=== PATIENT | female | born 1955 | race Caucasian/White ===

== ENCOUNTER → 2017-11-26 | Outpatient (REF) | payer BC ==
[2017-11-26 17:50] LABS: IMMUNOGLOBULIN G 1070 MG/DL (681-1648); IMMUNOGLOBULIN M 88.2 MG/DL (40-230)
[2017-11-28 08:06] LABS: ALPHA 1 ANTITRYPSIN 137 mg/dL (90-200)
== END ==
LOC: M LAB REF 16:52
DX: J47.9 Bronchiectasis, uncomplicated (principal)
CPT/HCPCS: 82103

== ENCOUNTER → 2017-12-11 | Outpatient (CLI) | payer BC ==
[~2017-12-11] MED LIST: METHACHOLINE KIT (J7674) INH
== END ==
LOC: M CARPUL 12:17
DX: J47.9 Bronchiectasis, uncomplicated (principal)

== ENCOUNTER → 2018-02-14 | Outpatient (CLI) | payer BC | LOC: M RAD 10:04 | DX: J47.9 Bronchiectasis, uncomplicated (principal) ==

== ENCOUNTER 2018-02-28 07:01 | Day surgery (SDC) | payer BC ==
[2018-02-28] MEDS: D5W 1,000 ML IV (06:00)
[2018-02-28] MEDS ORDERED: EPINEPHrine 1MG/10ML SYRINGE 1.5IN As Ordered (07:08)
[2018-02-28] MEDS ORDERED: LIDOCAINE 4% INJ 5 ML AMP As Ordered (07:08)
[2018-02-28] MEDS ORDERED: LIDOCAINE 1% MDV 20ML VIAL As Ordered (07:08)
[2018-02-28] MEDS ORDERED: MIDAZOLAM INJ 2 MG/2 ML VIAL (J2250) As Ordered ×5 (07:09→07:56)
[2018-02-28] MEDS ORDERED: fentaNYL 100 MCG/2 ML INJECTION (J3010) As Ordered (07:17)
[2018-02-28] MEDS: LIDOCAINE 4% INJ 5 ML AMP NEB (07:35)
[2018-02-28] MEDS: ALBUTEROL SULFATE 2.5 MG/0.5 ML INH NEB SOLN INH (07:35)
[2018-02-28 13:41] LABS: APPEARANCE CLEAR (CLEAR); BAL DIFF IF INDICATED? YES (NO); BAL WBC 27.775 CELLS/uL (0-10); COLOR COLORLESS (COLORLESS); DILUTION FACTOR 1; SOURCE BRON ALVEOLAR LAVAGE; WBC BAL COUNTED 25
[2018-02-28 15:36] LABS: MONOCYTES/MACROPHAGES, BAL 34 %
[2018-02-28 15:38] LABS: CC BAL DIFF EXAM CYTOCENTRIFUGE
== END 2018-02-28 09:15 | disposition home or self-care (01) ==
LOC: M OPP 07:01
DX: R91.8 Other nonspecific abnormal finding of lung field (principal); J47.9 Bronchiectasis, uncomplicated; J39.2 Other diseases of pharynx; K21.9 Gastro-esophageal reflux disease without esophagitis; Z79.899 Other long term (current) drug therapy; Z88.0 Allergy status to penicillin; Z88.2 Allergy status to sulfonamides; Z88.1 Allergy status to other antibiotic agents
CPT/HCPCS: 31624

== ENCOUNTER → 2018-05-30 | Outpatient (CLI) | payer BC | LOC: M RAD 13:04 | DX: J47.9 Bronchiectasis, uncomplicated (principal) | CPT/HCPCS: 71250 ==

== ENCOUNTER → 2019-02-26 | Outpatient (CLI) | payer BC ==
[~2019-02-26] MED LIST changes: +BUPR300T34 PO; +COMBAER6 INH; +DYMI137S; +IPRA0.00 INH; -METHACHOLINE KIT (J7674) INH; +PROBCAP4 PO; +RANI150T PO; +STIO1AER INH; +VITA100067 PO; +ZAFI1TAB PO
[2019-02-26 11:07] LABS: CREATININE FOR GFR 1.15 MG/DL (0.55-1.30); GLOMERULAR FILTRATION RATE 50.7 (>45)
== END ==
LOC: M SMT 09:04
PROVIDERS: ATTEND Urology
DX: R31.0 Gross hematuria (principal)

== ENCOUNTER → 2019-03-06 | Outpatient (CLI) | payer BC ==
[~2019-03-06] MED LIST changes: -BUPR300T34 PO; +BUPR300T92 PO; +ISOVUE-370 76% 100ML VIAL (Q9967) As Ordered ONE
--- NOTE | 2019-03-06 13:43 | REP ---
CT of the abdomen pelvis without and with IV contrast, multiphase imaging, CT urogram protocol: Comparison is a 2017. There is 82 mm left renal nonobstructive calculus, not definitely present previously. There are no right renal calculi. There are no ureteral calculi. There is no hydronephrosis. There are no bladder calculi. There is a phlebolith in the pelvis on the left. There are no solid or cystic renal masses. No bladder masses are identified. There is no perinephric stranding. The adrenals, spleen, pancreas and hepatic parenchyma are unremarkable. There are surgical clips in the gallbladder fossa. This is unchanged. The abdominal aorta is unremarkable. There is no retroperitoneal adenopathy or mass. Pelvis: There is a hysterectomy. Vaginal cuff and adnexa are unremarkable. The bladder is unremarkable. There is no adenopathy or ascites. The pelvic bowel loops are unremarkable. Impression: There is a nonobstructive 2 mm left renal calculus. There is no right renal calculus. There are no ureteral calculi. There are no bladder calculi. There is no hydronephrosis. There are no renal or bladder masses. There are no renal cysts. Cholecystectomy and hysterectomy. Otherwise, negative CT of the abdomen and pelvis. Electronically Signed by Kevin Ray MD 03/06/2019 01:35 P
== END ==
LOC: M RAD 10:36
PROVIDERS: ATTEND Urology
DX: N20.0 Calculus of kidney (principal); Z90.49 Acquired absence of other specified parts of digestive tract; Z90.79 Acquired absence of other genital organ(s)
CPT/HCPCS: 74178; Q9967

== ENCOUNTER → 2019-06-24 | Outpatient (REF) | payer BC ==
[~2019-06-24] MED LIST changes: +BUPR300T34 PO; -BUPR300T92 PO; -ISOVUE-370 76% 100ML VIAL (Q9967) As Ordered ONE
[2019-06-24 13:19] LABS: APPEARANCE, URINE CLOUDY (CLEAR); BACTERIA, URINE AUTO 1+ (NEGATIVE); BILIRUBIN, URINE AUTO NEGATIVE (NEGATIVE); BLOOD, URINE BLOOD 3+ (NEGATIVE); CALCIUM OXALATE CRYSTALS LARGE; COLOR, URINE YELLOW (YELLOW); GLUCOSE, URINE (UA) AUTO NEGATIVE (NEGATIVE); KETONE, URINE AUTO NEGATIVE (NEGATIVE); LEUKOCYTE ESTERASE, URINE AUTO 2+ (NEGATIVE); NITRITE, URINE AUTO NEGATIVE (NEGATIVE); PROTEIN, URINE AUTO 1+ mg/dL (NEGATIVE); RBC, URINE AUTO TNTC /HPF (0-3); SPECIFIC GRAVITY URINE AUTO 1.019 (1.002-1.035); SQUAMOUS EPITHELIAL CELL UR AU 0 /HPF (0-6); UROBILINOGEN, URINE AUTO 0.2 mg/dL (0.0-2.0); WBC, URINE AUTO 168 /HPF (0-3)
== END ==
LOC: M SMT 13:06
PROVIDERS: ATTEND Nurse Practitioner Family
DX: N20.0 Calculus of kidney (principal)

== ENCOUNTER → 2019-06-24 | Outpatient (REF) | payer BC | LOC: M SMT 13:10 | PROVIDERS: ATTEND Nurse Practitioner Family | DX: N20.0 Calculus of kidney (principal) ==

== ENCOUNTER → 2019-10-13 | Outpatient (CLI) | payer BC ==
[~2019-10-13] MED LIST changes: -BUPR300T34 PO; +BUPR300T92 PO
--- NOTE | 2019-10-13 16:44 | REP ---
HISTORY: Followup The latest prior for comparison is from an outside institution dated 09/06/2019. That was reviewed along with the next latest prior from [facility] of 05/30/2018. The examination was ordered and performed without intravenous contrast. There is no mediastinal or hilar adenopathy. There are no pleural or pericardial effusions. The images upper abdomen again shows a 6 mm sized nonobstructing nephrolith in the left kidney. The images osseous structures are within normal limits. Incidental note of a 1 cm sized T11 vertebral body hemangioma. Evaluation of the lung pacheco shows the rather large and irregular pleural based opacity in the left lung apical region to have markedly diminished in size and density. The opacity seen previously in the right upper lobe has also markedly decreased in size and density. A small right middle lobe opacity seen on the prior exam has also improved. The lingular opacity has nearly completely resolved. No new abnormal nodules, masses or opacities have developed. There is mild cylindrical bronchiectasis. IMPRESSION: Marked lung field improvement as described above, however, I would recommend an additional three month followup to ensure complete resolution. Certainly, this should be obtained sooner if the clinical situation warrants. Other findings as described above. Electronically Signed by Saleem Titus DO 10/14/2019 08:45 A
== END ==
LOC: M RAD 13:44
PROVIDERS: ATTEND Physician Assistant
DX: R91.8 Other nonspecific abnormal finding of lung field (principal); J47.9 Bronchiectasis, uncomplicated; J18.9 Pneumonia, unspecified organism

== ENCOUNTER → 2019-10-21 | Outpatient (REF) | payer BC ==
[2019-10-21 17:45] LABS: APPEARANCE, URINE HAZY (CLEAR); BACTERIA, URINE AUTO 1+ (NEGATIVE); BILIRUBIN, URINE AUTO NEGATIVE (NEGATIVE); BLOOD, URINE BLOOD 3+ (NEGATIVE); CALCIUM OXALATE CRYSTALS SMALL; COLOR, URINE YELLOW (YELLOW); GLUCOSE, URINE (UA) AUTO NEGATIVE (NEGATIVE); KETONE, URINE AUTO NEGATIVE (NEGATIVE); LEUKOCYTE ESTERASE, URINE AUTO NEGATIVE (NEGATIVE); MUCUS, URINE SMALL (NEGATIVE); NITRITE, URINE AUTO NEGATIVE (NEGATIVE); PROTEIN, URINE AUTO NEGATIVE (NEGATIVE); RBC, URINE AUTO 55 /HPF (0-3); SPECIFIC GRAVITY URINE AUTO 1.004 (1.002-1.035); SQUAMOUS EPITHELIAL CELL UR AU 0 /HPF (0-6); UROBILINOGEN, URINE AUTO 0.2 mg/dL (0.0-2.0); WBC, URINE AUTO 2 /HPF (0-3)
== END ==
LOC: M SMT 16:55
PROVIDERS: ATTEND Nurse Practitioner Family
DX: R31.0 Gross hematuria (principal)

== ENCOUNTER → 2019-10-25 | Outpatient (REF) | payer BC | LOC: M SMT 14:18 | PROVIDERS: ATTEND Nurse Practitioner Family | DX: N20.0 Calculus of kidney (principal) ==

== ENCOUNTER → 2019-10-28 | Outpatient (CLI) | payer BC ==
[~2019-10-28] MED LIST changes: +ISOVUE-370 76% 100ML VIAL (Q9967) As Ordered ONE
[2019-10-28 14:33] LABS: CALCIUM LEVEL 9.6 MG/DL (8.8-10.2); CREATININE FOR GFR 1.15 MG/DL (0.55-1.30); GLOMERULAR FILTRATION RATE 50.6 (>45); POTASSIUM SERUM 4.3 MEQ/L (3.5-5.1)
--- NOTE | 2019-10-29 17:48 | REP ---
Clinical: Gross hematuria. Technique: Axial precontrast, contrast enhanced, and delayed images of the abdomen and pelvis using 100 ml Isovue 370 intravenous contrast material with coronal and sagittal re-formations. Comparison: 03/06/2019. Findings: There is a 5 mm currently nonobstructing calculus in the left renal pelvis. The kidneys/ureters and bladder are otherwise normal and there is no hydroureteronephrosis, perinephric stranding, or obstructing ureteral calculi. No renal cystic or mass lesions are identified. Liver, spleen, pancreas, and bilateral adrenal glands are normal. Evidence of prior cholecystectomy. The enteric system is without obstruction or acute inflammatory process. Pelvis demonstrates normal bladder and evidence of prior hysterectomy. No ascites. No free air. No adenopathy. Abdominal aorta and vasculature without aneurysm or dissection. Musculoskeletal structures are intact. Lung bases are relatively clear. Impression: 5 mm currently nonobstructing calculus in the left renal pelvis. Electronically Signed by Osorio Sal MD 10/29/2019 05:39 P
== END ==
LOC: M RAD 13:35
PROVIDERS: ATTEND Nurse Practitioner Family
DX: R31.0 Gross hematuria (principal); N20.0 Calculus of kidney
CPT/HCPCS: 36415; 74178; 80048; Q9967

== ENCOUNTER → 2019-11-17 | Outpatient (CLI) | payer BC ==
[~2019-11-17] MED LIST changes: -ISOVUE-370 76% 100ML VIAL (Q9967) As Ordered ONE; +NO ITAB PO; +PANT40TA3 PO; +PROBCAP14 PO; +VITAD1000T PO
== END ==
LOC: M LABSMTC 12:41
PROVIDERS: ATTEND Anesthesiology
DX: Z11.59 Encounter for screening for other viral diseases (principal)

== ENCOUNTER 2019-11-19 10:29 | Day surgery (SDC) | payer BC ==
[~2019-11-19] VITALS: Ht 154.9 cm; Wt 65.8 kg
[~2019-11-19 10:29] MED LIST changes: +CONRAY-60 60% 50ML VIAL (Q9961) As Ordered ONE; +LIDOCAINE 2% 100MG/5ML SDV (FOR ANES.) As Ordered ONE; +LR 1,000 ML IV ONE; +MIDAZOLAM INJ 2MG/2ML VIAL (J2250 PER 1MG) As Ordered ONE; +ONDANSETRON 4MG/2ML VIAL As Ordered ONE; +dexameTHASONE 4 MG/ML 1ML VIAL (J1100 PER 1MG) As Ordered ONE; +fentaNYL 100 MCG/2 ML INJECTION (J3010) As Ordered ONE; +propofoL 200 MG/20 ML VIAL As Ordered ONE
[2019-11-19] MEDS ORDERED: CIPROFLOXACIN 400 MG in IV 1 EA IV ONE (11:15)
[2019-11-19] MEDS ORDERED: fentaNYL 100 MCG/2 ML INJECTION (J3010) As Ordered ONE (12:34)
[2019-11-19] MEDS ORDERED: KETOROLAC 60 MG/2 ML VIAL As Ordered ONE (12:50)
[2019-11-19] MEDS ORDERED: LR 1,000 ML IV SCH (13:30)
[2019-11-19] MEDS ORDERED: PERCOCET 5MG/325MG TAB PO PRN (13:30)
[2019-11-19] MEDS ORDERED: oxyCODONE 5MG TAB PO PRN (13:30)
[2019-11-19] MEDS ORDERED: fentaNYL 100 MCG/2 ML INJECTION (J3010) IV PRN (13:30)
[2019-11-19] MEDS ORDERED: ONDANSETRON 4MG/2ML VIAL IV PRN (13:30)
--- NOTE | 2019-11-19 14:00 | REP ---
C-ARM VIEWS DURING LEFT URETERAL STENT PLACEMENT: Two C-arm views are performed in the abdomen and pelvis. Contrast partially opacifies the left pelvicaliceal system. A left ureteral stent is placed with the proximal end coiled in the left renal pelvis and the distal end in the urinary bladder. 18 seconds of fluoroscopy time utilized. Electronically Signed by Kevin Payne MD 11/19/2019 03:08 P
[2019-11-19 14:51] VITALS: BP 181/90
--- NOTE | 2019-11-21 21:08 | RO ---
DATE OF PROCEDURE: 11/19/2019 PREPROCEDURE DIAGNOSIS: Gross hematuria, left kidney stone. POSTPROCEDURE DIAGNOSIS: Gross hematuria, left kidney stone. PROCEDURE: Cystoscopy, left ureteroscopy with laser lithotripsy and basket extraction of stones, left retrograde pyelogram with intraoperative interpretation of images, left ureteral stent placement. SURGEON: Max Barnes MD CLIENT APPLICATION SUPPORT ENGINEER: None. ANESTHESIA: General. OPERATIVE INDICATIONS: This is a 64-year-old female who has been having intermittent gross hematuria, was also found to have a 6 mm left kidney stone. She was brought to the operating room today for treatment. DESCRIPTION OF PROCEDURE: The patient was brought to the operating room and general anesthesia induced. Prophylactic antibiotics were infused. She was placed in the dorsal lithotomy position and prepped and draped in the usual sterile fashion. A rigid cystoscope was then inserted into the urethral meatus and advanced into the bladder. The bladder was then thoroughly examined, and no abnormalities were seen. No tumors were seen. No bladder stones were seen. Bilateral ureteral orifices were orthotopic. The right ureteral orifice effluxed clear urine. At this point, I advanced a guidewire up the left collecting system and advanced a ureteral access sheath up the left collecting system. I then went up the access sheath with a flexible ureteroscope, and of note, the proximal ureter all the way up to the ureteropelvic junction was very narrow. I had a very hard time getting the scope into the left kidney. At the level of the uteropelvic junction, the 6 mm stone was seen. The stone was fragmented into smaller pieces using a 272 micron laser fiber. The stone was dusted and then only one moderate size fragment remained, and this was removed using a basket. All the other fragments that remained were small enough to pass. I examined the rest of the kidney and no additional stones or abnormalities were seen. A retrograde pyelogram was performed and was notable for mild left hydronephrosis with no extravasation. I then withdrew the ureteroscope along with the access sheath and no additional stones or abnormalities were seen within the ureter. I then utilized the wire to advance a 6-Kyrgyz x 22-32 cm JJ ureteral stent into the left collecting system. The wire was removed, and there were adequate curls of the stent in the left renal pelvis and in the bladder. The bladder was emptied of all fluids, and this marked the conclusion of the procedure. The patient was taken out of the dorsal lithotomy position, awakened from anesthesia and transported to the recovery room in stable condition. Estimated blood loss: 5 mL. Complications: None. Specimens: Kidney stone. PLAN: I will keep the patient's stent in for approximately 2-3 weeks given the amount of edema in the proximal left ureter. Will have her followup in the clinic to remove the stent at that time. No additional workup is required for gross hematuria as it appeared that the hematuria was related to her stone. ELIANA
== END 2019-11-19 15:20 | disposition home or self-care (01) ==
LOC: M SDC 10:29
PROVIDERS: ATTEND Urology
DX: N20.0 Calculus of kidney (principal); R31.0 Gross hematuria; K21.9 Gastro-esophageal reflux disease without esophagitis; J44.9 Chronic obstructive pulmonary disease, unspecified; Z79.899 Other long term (current) drug therapy; Z88.0 Allergy status to penicillin; Z88.2 Allergy status to sulfonamides; Z88.5 Allergy status to narcotic agent; Z91.030 Bee allergy status
CPT/HCPCS: 52356; 74420; 82365; 88300; C1769; C2617; J0744; J1100; J1885; J2250; J2405; J3010; Q9961

== ENCOUNTER → 2020-04-16 | Outpatient (CLI) | payer BC ==
[~2020-04-16] MED LIST changes: -CONRAY-60 60% 50ML VIAL (Q9961) As Ordered ONE; +D31000TA2 PO; -LIDOCAINE 2% 100MG/5ML SDV (FOR ANES.) As Ordered ONE; -LR 1,000 ML IV ONE; -MIDAZOLAM INJ 2MG/2ML VIAL (J2250 PER 1MG) As Ordered ONE; -ONDANSETRON 4MG/2ML VIAL As Ordered ONE; +PANT40TA29 PO; -PANT40TA3 PO; -VITAD1000T PO; -dexameTHASONE 4 MG/ML 1ML VIAL (J1100 PER 1MG) As Ordered ONE; -fentaNYL 100 MCG/2 ML INJECTION (J3010) As Ordered ONE; -propofoL 200 MG/20 ML VIAL As Ordered ONE
--- NOTE | 2020-04-26 15:11 | REP ---
CT CHEST WITHOUT CONTRAST HISTORY: Other nonspecific abnormal finding of lung field. COMPARISON: Chest CT study 10/13/2019 and 05/30/2018. Prior imaging from 08/28/2017 is the most remote prior CT study. A 09/06/[address] [facility] [address] study showed multifocal areas of dense parenchymal consolidation bilaterally. Similar areas of consolidation are visible on the 08/28/2017 study, although not as extensive. FINDINGS: Todays CT images demonstrate areas of pleural parenchymal scarring in the right upper lobe, both lung apices, right middle lobe, and lingula in the distribution of the consolidation pattern seen on 09/06/2019 CT. There are some stable nodular elements in the right upper lobe, which are unchanged from 05/2018 and 09/2019. There is evidence of mild bronchiectasis in the lower lobes and upper lobes. There is some endobronchial mucoid material in one of the segmental bronchi of the right upper lobe today. No new area of consolidation is seen. No pleural or pericardial effusion is noted. No hilar or mediastinal mass or adenopathy is seen. The adrenal glands are normal bilaterally. The gallbladder is surgically absent. Visualized upper abdominal structures are otherwise unremarkable. No bony destructive lesion is seen. IMPRESSION: Chronic pleural parenchymal changes bilaterally as above. Post inflammatory pattern. Subtle bronchiectasis. MTDD
== END ==
LOC: M RAD 11:11
PROVIDERS: ATTEND Physician Assistant
DX: R91.8 Other nonspecific abnormal finding of lung field (principal); J47.9 Bronchiectasis, uncomplicated

== ENCOUNTER → 2020-06-14 | Outpatient (CLI) | payer MEDICARE, BC ==
--- NOTE | 2020-06-14 20:48 | REPPI ---
INDICATION: KIDNEY STONE COMPARISON: None. TECHNIQUE: Supine view of the abdomen and pelvis. FINDINGS: Evaluation for urinary tract calcifications is significantly limited due to overlying fecal stasis and bowel gas pattern. Evidence for prior cholecystectomy. No obvious abnormal calcifications. No evidence for bowel obstruction. Skeletal structures are intact. IMPRESSION: Limited evaluation for urinary tract calcifications due to significant bowel gas and fecal stasis. <Electronically signed by Osorio Sal > 06/14/20 [id number]
== END ==
LOC: M PLAIMG 10:49 → M PLALAB 10:49
PROVIDERS: ATTEND Urology
DX: N20.0 Calculus of kidney (principal)
CPT/HCPCS: 74018; G0463

== ENCOUNTER → 2021-05-02 | Outpatient (CLI) | payer MEDICARE, BC ==
--- NOTE | 2021-05-02 15:55 | REP ---
INDICATION: BRONCHIECTASIS, ABN FINDING OF LUNG FIELD COMPARISON: Multiple the latest 04/16/2020 TECHNIQUE: Standard helical technique without intravenous contrast FINDINGS: There is no significant change in appearance of the mediastinum or pulmonary robby. No mass or adenopathy has developed. There are no pleural or pericardial effusions. There is no significant change in appearance of the imaged upper abdomen or imaged osseous structures. Once again, there are 2 tiny non-obstructing left nephroliths. There is no significant change in appearance of the imaged osseous structures. Evaluation of the lung pacheco shows stable appearing biapical pleuroparenchymal scarring. Scattered right upper lobe nodules and asymmetric pleural based right upper lobe density all appear stable. Scattered left upper lobe nodules also of a stable appearance. Asymmetric densities are again seen in the lingula and right middle lobe inferiorly all having a stable appearance. There is mild cylindrical bronchiectasis status quo. No definite new abnormal nodules, masses, or opacities have developed. IMPRESSION: Stable appearing chronic lung field changes as described above. <Electronically signed by Saleem Titus > 05/02/21 [id number]
== END ==
LOC: M PLAIMG 13:13
PROVIDERS: ATTEND Physician Assistant
DX: J47.9 Bronchiectasis, uncomplicated (principal); R91.8 Other nonspecific abnormal finding of lung field

== ENCOUNTER → 2021-11-01 | Outpatient (CLI) | payer MEDICARE, BC ==
[~2021-11-01] MED LIST changes: -D31000TA2 PO; +VITA100093 PO
== END ==
LOC: M PLAIMG 10:39
PROVIDERS: ATTEND Physician Assistant
DX: R91.8 Other nonspecific abnormal finding of lung field (principal)

== ENCOUNTER → 2021-11-21 | Outpatient (CLI) | payer MEDICARE, BC ==
[2021-11-21 14:46] LABS: BASO % 0.2 % (0.0-1.0); EOS # 0.2 10^3/uL (0.0-0.5); EOS % 2.3 % (0.0-3.0); HEMATOCRIT 36.8 % (36.0-47.0); HEMOGLOBIN 12.3 g/dl (12.0-15.5); LYMPH # 1.8 10^3/uL (1.5-5.0); LYMPH % 21.3 % (24.0-44.0); MEAN CORPUSCULAR HEMOGLOBIN 30.1 pg (27.0-33.0); MEAN CORPUSCULAR HGB CONC 33.4 g/dl (32.0-36.5); MEAN CORPUSCULAR VOLUME 90.2 fl (80.0-96.0); MONO # 0.9 10^3/uL (0.0-0.8); MONO % 10.2 % (2.0-8.0); NEUTROPHILS # 5.5 10^3/uL (1.5-8.5); NEUTROPHILS % 65.3 % (36.0-66.0); PLATELET COUNT, AUTOMATED 271 10^3/uL (150-450); RED BLOOD COUNT 4.08 10^6/uL (4.00-5.40); WHITE BLOOD COUNT 8.4 10^3/uL (4.0-10.0)
== END ==
LOC: M LAB 13:46
PROVIDERS: ATTEND Internal Medicine Pulmonary Disease
DX: R91.8 Other nonspecific abnormal finding of lung field (principal)

== ENCOUNTER → 2022-01-04 | Outpatient (CLI) | payer MEDICARE, BC | LOC: M RAD 09:11 | PROVIDERS: ATTEND Internal Medicine Pulmonary Disease | DX: R91.8 Other nonspecific abnormal finding of lung field (principal) ==

== ENCOUNTER → 2022-02-20 | Outpatient (CLI) | payer MEDICARE, BC | LOC: M PLARAD 09:34 | PROVIDERS: ATTEND Internal Medicine Pulmonary Disease | DX: R91.8 Other nonspecific abnormal finding of lung field (principal) | CPT/HCPCS: 78815; A9552 ==

== ENCOUNTER 2022-03-08 06:03 | Day surgery (SDC) | payer MEDICARE, BC ==
[~2022-03-08] VITALS: Ht 154.9 cm; Wt 68.5 kg
[~2022-03-08 06:03] MED LIST changes: +ARNU1INH3 INH; +LOSA100T45 PO; +OMEP40CA5 PO; +POTA20EL PO
[2022-03-08] MEDS ORDERED: LIDOCAINE 4% INJ 5ML AMP INH ONE (06:15)
[2022-03-08] MEDS ORDERED: ALBUTEROL SULFATE 2.5 MG/0.5 ML INH NEB SOLN INH ONE (06:15)
[2022-03-08] MEDS ORDERED: LR 1,000 ML IV SCH ×2 (06:45→08:55)
[2022-03-08] MEDS ORDERED: LIDOCAINE 4% INJ 5ML AMP As Ordered ONE (07:09)
[2022-03-08] MEDS ORDERED: LIDOCAINE 2% 100MG/5ML SDV (FOR ANES.) As Ordered ONE (07:20)
[2022-03-08] MEDS ORDERED: propofoL 200 MG/20 ML VIAL As Ordered ONE (07:20)
[2022-03-08] MEDS ORDERED: ROCURONIUM BROMIDE 50 MG/5 ML VIAL As Ordered ONE (07:20)
[2022-03-08] MEDS ORDERED: dexameTHASONE 4 MG/ML 1ML VIAL (J1100 PER 1MG) As Ordered ONE (07:20)
[2022-03-08] MEDS ORDERED: fentaNYL 100 MCG/2 ML INJECTION As Ordered ONE (07:20)
[2022-03-08] MEDS ORDERED: MIDAZOLAM INJ 2MG/2ML VIAL (J2250 PER 1MG) As Ordered ONE (07:21)
[2022-03-08] MEDS ORDERED: SEVOFLURANE INHAL SOLN 250 ML BTL As Ordered ONE (07:21)
[2022-03-08] MEDS ORDERED: CETACAINE SPRAY 5GM As Ordered ONE (07:23)
[2022-03-08] MEDS ORDERED: THROMBIN SOLN 5,000 UNITS VIAL As Ordered ONE (07:23)
[2022-03-08] MEDS ORDERED: EPINEPHrine 1MG/10ML SYRINGE 1.5IN As Ordered ONE (07:24)
[2022-03-08] MEDS ORDERED: PHENYLephrine 500MCG 5ML (100MCG/ML) SYRINGE As Ordered ONE (08:06)
[2022-03-08] MEDS ORDERED: ONDANSETRON 4MG 2ML VIAL As Ordered ONE (08:13)
[2022-03-08] MEDS ORDERED: SUGAMMADEX SODIUM 500 MG/5 ML VIAL (BRIDION) As Ordered ONE (08:13)
[2022-03-08] MEDS ORDERED: PERCOCET 5MG/325MG TAB PO PRN (08:55)
[2022-03-08] MEDS ORDERED: fentaNYL 100 MCG/2 ML INJECTION IV PRN (08:55)
[2022-03-08] MEDS ORDERED: ONDANSETRON 4MG 2ML VIAL IV PRN (08:55)
[2022-03-08] MEDS ORDERED: MORPHINE 2 MG/ML 1ML VIAL IV PRN (08:55)
[2022-03-08 10:20] VITALS: BP 176/83
== END 2022-03-08 10:20 | disposition home or self-care (01) ==
LOC: M SDC 06:03
PROVIDERS: ATTEND Internal Medicine Pulmonary Disease
DX: J47.9 Bronchiectasis, uncomplicated (principal); J44.9 Chronic obstructive pulmonary disease, unspecified; I12.9 Hypertensive chronic kidney disease with stage 1 through stage 4 chronic kidney disease, or unspecified chronic kidney disease; K44.9 Diaphragmatic hernia without obstruction or gangrene; K21.9 Gastro-esophageal reflux disease without esophagitis; N18.30 Chronic kidney disease, stage 3 unspecified; F32.A Depression, unspecified; Z79.899 Other long term (current) drug therapy; Z88.0 Allergy status to penicillin; Z88.1 Allergy status to other antibiotic agents; Z88.2 Allergy status to sulfonamides; Z88.5 Allergy status to narcotic agent; Z91.030 Bee allergy status
CPT/HCPCS: 31623; 31624; 31627; 31628; 71045; 76000; 87070; 87071; 87077; 87102; 87116; 87205; 87206; 88104; 88305; 93005; J0171; J1100; J2250; J2370; J2405; J3010; S2900

== ENCOUNTER → 2022-04-17 | Outpatient (CLI) | payer MEDICARE, BC ==
[2022-04-17 13:12] LABS: BASO # 0.1 10^3/uL (0.0-0.2); BASO % 0.6 % (0.0-1.0); EOS # 0.3 10^3/uL (0.0-0.5); EOS % 3.4 % (0.0-3.0); HEMATOCRIT 40.3 % (36.0-47.0); HEMOGLOBIN 12.7 g/dl (12.0-15.5); LYMPH # 1.4 10^3/uL (1.5-5.0); LYMPH % 17.9 % (24.0-44.0); MEAN CORPUSCULAR HEMOGLOBIN 29.5 pg (27.0-33.0); MEAN CORPUSCULAR HGB CONC 31.5 g/dl (32.0-36.5); MEAN CORPUSCULAR VOLUME 93.7 fl (80.0-96.0); MONO # 0.8 10^3/uL (0.0-0.8); MONO % 9.4 % (2.0-8.0); NEUTROPHILS # 5.5 10^3/uL (1.5-8.5); NEUTROPHILS % 68.1 % (36.0-66.0); PLATELET COUNT, AUTOMATED 279 10^3/uL (150-450)
[2022-04-17 13:36] LABS: ERYTHROCYTE SEDIMENTATION RATE 43 mm/hr (0-30)
[2022-04-17 14:36] LABS: ALBUMIN 3.3 GM/DL (3.2-5.2); BILIRUBIN,TOTAL 0.3 MG/DL (0.2-1.0); C REACTIVE PROTEIN QUANTITATIV 1.88 MG/DL (0.00-0.30); CALCIUM LEVEL 10.7 MG/DL (8.8-10.2); CREATININE FOR GFR 1.28 MG/DL (0.55-1.30); GLOMERULAR FILTRATION RATE 44.4 (>45); IMMUNOGLOBULIN M 98.5 MG/DL (40-230); POTASSIUM SERUM 4.5 MEQ/L (3.5-5.1); TOTAL PROTEIN 7.2 GM/DL (6.4-8.2)
[2022-04-23 02:06] LABS: ASPERGILLUS GALACTOMANNAN AG 0.08 Index (0.00-0.49); M003-IGE ASPERGILLUS fumigatus <0.10 kU/L (Class 0)
== END ==
LOC: M PLALAB 09:14
PROVIDERS: ATTEND Internal Medicine Infectious Disease
DX: B44.89 Other forms of aspergillosis (principal)

== ENCOUNTER → 2022-06-13 | Outpatient (CLI) | payer MEDICARE, BC ==
[2022-06-13 15:16] LABS: BASO % 0.6 % (0.0-1.0); EOS # 0.2 10^3/uL (0.0-0.5); EOS % 2.6 % (0.0-3.0); HEMATOCRIT 40.2 % (36.0-47.0); HEMOGLOBIN 12.5 g/dl (12.0-15.5); LYMPH # 1.4 10^3/uL (1.5-5.0); LYMPH % 22.6 % (24.0-44.0); MEAN CORPUSCULAR HEMOGLOBIN 29.3 pg (27.0-33.0); MEAN CORPUSCULAR HGB CONC 31.1 g/dl (32.0-36.5); MEAN CORPUSCULAR VOLUME 94.4 fl (80.0-96.0); MONO # 0.6 10^3/uL (0.0-0.8); MONO % 9.7 % (2.0-8.0); NEUTROPHILS % 64.2 % (36.0-66.0); PLATELET COUNT, AUTOMATED 276 10^3/uL (150-450); RED BLOOD COUNT 4.26 10^6/uL (4.00-5.40); WHITE BLOOD COUNT 6.2 10^3/uL (4.0-10.0)
[2022-06-13 15:24] LABS: POTASSIUM SERUM 4.9 MMOL/L (3.5-5.1)
[2022-06-13 15:25] LABS: ALBUMIN 3.5 G/DL (3.2-5.2)
[2022-06-13 15:31] LABS: C REACTIVE PROTEIN QUANTITATIV 0.6 MG/DL (<1.0); CALCIUM LEVEL 9.3 MG/DL (8.3-10.6)
[2022-06-13 15:33] LABS: BILIRUBIN,TOTAL 0.3 MG/DL (0.3-1.2); CREATININE FOR GFR 1.09 MG/DL (0.55-1.30); GLOMERULAR FILTRATION RATE 53.3 (>45); TOTAL PROTEIN 6.7 G/DL (5.7-8.2)
[2022-06-13 15:48] LABS: ERYTHROCYTE SEDIMENTATION RATE 37 mm/hr (0-30)
== END ==
LOC: M PLALAB 08:19
PROVIDERS: ATTEND Internal Medicine Infectious Disease
DX: B44.89 Other forms of aspergillosis (principal)

== ENCOUNTER → 2022-08-28 | Outpatient (CLI) | payer MEDICARE, BC | LOC: M PLAIMG 12:30 | PROVIDERS: ATTEND Internal Medicine Pulmonary Disease | DX: B44.1 Other pulmonary aspergillosis (principal) ==

== ENCOUNTER → 2023-01-29 | Outpatient (CLI) | payer MEDICARE, BC ==
[~2023-01-29] MED LIST changes: -LOSA100T45 PO; +LOSA100T46 PO; -ZAFI1TAB PO; +ZAFI20TA11 PO
== END ==
LOC: M RAD 11:42
PROVIDERS: ATTEND Internal Medicine Pulmonary Disease
DX: B44.1 Other pulmonary aspergillosis (principal); R91.8 Other nonspecific abnormal finding of lung field

== ENCOUNTER → 2023-10-29 | Outpatient (CLI) | payer MEDICARE, BC ==
[~2023-10-29] MED LIST changes: -POTA20EL PO; +POTA20LI16 PO
== END ==
LOC: M PLAIMG 12:31
PROVIDERS: ATTEND Internal Medicine Pulmonary Disease
DX: J47.9 Bronchiectasis, uncomplicated (principal)